=== PATIENT | female | born 1965 | race Caucasian/White ===

== ENCOUNTER → 2018-06-12 | Day surgery (SDC) | payer BC ==
--- NOTE | 2018-06-15 08:51 | PATH ---
Cytology Non-Gynecological Report Patient Name: MATT HAYWOOD [facility]. Rec. #: [id number] /Age/Gender: 1965 (Age: 53) / F Account: [id number] Location: RADIOLOGY INTER Taken: 06/12/2018 Received: 06/13/2018 Reported: 06/15/2018 Physicians: Jason Bonilla M.D. Specimen(s) Received ISTHMUS 1.68 x 0.79 x 1.27cm Clinical History Isthmus nodule Final Diagnosis THYROID, ISTHMUS, FINE NEEDLE ASPIRATION: SATISFACTORY FOR EVALUATION BETHESDA CLASS II: BENIGN SMALL FOLLICULAR CELLS, MACROPHAGES, AND COLLOID PRESENT, CONSISTENT WITH A BENIGN FOLLICULAR NODULE. Electronically Signed John English M.D. Gross Description Received are eight direct smears, four of which are air-dried and Diff-Quik stained, and four of which are alcohol fixed and Pap stained. Also received is 30 ml of bloody formalin from which one cellblock is prepared.
== END | disposition home or self-care (01) ==
LOC: JRADIR 09:10
PROVIDERS: ATTEND Internal Medicine Endocrinology, Diabetes & Metabolism
PROC: 0G9K3ZX Drainage of Thyroid Gland, Percutaneous Approach, Diagnostic (ICD-10-PCS; principal; 2018-06-12)
DX: E04.1 Nontoxic single thyroid nodule (principal)
CPT/HCPCS: 76942; 88173; 88305-TC

== ENCOUNTER 2019-02-02 09:10 | Day surgery (SDC) | payer BC ==
[2019-02-02 09:28] VITALS: BMI 33.4
[2019-02-02] MEDS ORDERED: PROPOFOL 20 ML ONE (11:34)
[2019-02-02] MEDS ORDERED: MIDAZOLAM HCL 2 MG/2 ML SINGLE DOSE VIAL ONE (11:34)
--- NOTE | 2019-02-02 11:54 | HP ---
History & Physical Update - History History: No Change (postmenopausal bleeding) - Physical Physical: No Change - Assessment Assessment: No Change - Plan Plan: No Change (D&C, hysteroscopy, excision of uterine mass.)
[2019-02-02] MEDS ORDERED: ceFAZolin SODIUM 1 GM VIAL IVPB ONE (12:03)
[2019-02-02] MEDS ORDERED: ceFAZolin SODIUM 1 GM VIAL ONE (12:04)
[2019-02-02] MEDS ORDERED: KETOROLAC TROMETHAMINE 30 MG/1 ML VIAL ONE (12:04)
[2019-02-02] MEDS ORDERED: DEXAMETHASONE SOD PHOSPHATE 4 MG/1 ML VIAL ONE (12:04)
[2019-02-02] MEDS ORDERED: LIDOCAINE HCL/PF 2% SDV 5ML VIAL ONE (12:04)
[2019-02-02] MEDS ORDERED: SODIUM CHLORIDE 0.9% P/F 10 ML VIAL IJ ONE (12:10)
--- NOTE | 2019-02-02 13:04 | OP ---
Operative Note - Note: Operative Date: 02/02/19 Pre-Operative Diagnosis: Postmenopausal bleeding, endometrial polyp Operation: Hysteroscopy, polypectomy, D&C Findings: Endometrial polyp, normal uterine cavity Post-Operative Diagnosis: Same as Pre-op Surgeon: Benoit Saldaña Anesthesiologist/FINISHING TUNNEL OPERATOR: Spring Maddox Anesthesia: General Specimens Removed: Endometrial polyp, endometrial curettings. Estimated Blood Loss (mls): 5 Blood Volume Replaced (mls): 0 Fluid Volume Replaced (mls): 800 Operative Report Dictated: Yes
[2019-02-02] MEDS ORDERED: oxyCODONE HCL 5 MG TABLET PO PRN (13:40)
[2019-02-02] MEDS ORDERED: ONDANSETRON 4 MG/2 ML VIAL IVPUSH PRN (13:40)
[2019-02-02] MEDS ORDERED: LACTATED RINGERS SOLUTION 1,000 ML IV SCH (13:45)
[2019-02-02 14:18] VITALS: TEMP 97.3
[2019-02-02 15:02] VITALS: BP 150/85; PULSE 72
--- NOTE | 2019-02-05 16:37 | PATH ---
Surgical Pathology Report Patient Name: MATT HAYWOOD [facility]. Rec. #: [id number] /Age/Gender: 1965 (Age: 54) / F Account: [id number] Location: [facility] SURGICAL Taken: 02/02/2019 Received: 02/02/2019 Reported: 02/05/2019 Physicians: Benoit Saldaña M.D. Specimen(s) Received A: ENDOMETRIAL POLYP B: ENDOMETRIAL CURETTINGS Clinical History Postmenopausal bleeding Final Diagnosis A. ENDOMETRIAL POLYP, BIOPSY: ENDOMETRIAL POLYP. B. ENDOMETRIAL CURETTINGS, DILATION AND CURETTAGE: STRIPS OF ENDOMETRIAL GLANDS CONSISTENT WITH ATROPHIC ENDOMETRIUM, SUPERFICIAL MYOMETRIUM, AND SCANT BENIGN CERVICAL TISSUE. Electronically Signed Rosangela Barba M.D. Gross Description A. Received in formalin labeled "endometrial polyp," are 3 pink-barraza, polypoid portions of soft tissue ranging from 0.6 x 0.2 x 0.1 cm to 2.2 x 1.7 x 0.3 cm. The specimens are submitted in toto in one cassette. B. Received in formalin labeled "endometrial curettings," is a 1.0 x 0.8 x 0.2 cm aggregate of barraza-red soft tissue fragments. The formalin is filtered and the specimen is entirely submitted in one cassette. 02/02/201902/02/2019
--- NOTE | 2019-02-09 18:59 | OP ---
DATE OF OPERATION: 02/02/2019 PREOPERATIVE DIAGNOSIS: Postmenopausal bleeding, endometrial polyp. POSTOPERATIVE DIAGNOSIS: Postmenopausal bleeding, endometrial polyp. PROCEDURE: Hysteroscopy, polypectomy, dilation and curettage. SURGEON: Benoit Saldaña MD ANESTHESIOLOGIST: Spring Maddox MD ANESTHESIA: General. COMPLICATIONS: None. ESTIMATED BLOOD LOSS: 5 mL. INTRAVENOUS FLUIDS: 800 mL. PATHOLOGY: Enlargement polyp, endometrial curettings. FINDINGS: Examination under anesthesia revealed a small, anteverted uterus. Hysteroscopy revealed a large endometrial polyp. Otherwise, the uterine cavity appeared to be within normal limits. DESCRIPTION OF PROCEDURE: The patient was met preoperatively. Risks, benefits, alternatives of surgery were discussed in details. All questions were answered. The patient verbalized her understanding and requested to proceed with the surgery. She was brought to the OR with the IV running. The patient was placed on the surgical table in the supine position. General anesthesia was achieved without difficulty. The patient was placed in a dorsal lithotomy position using adjustable Juanpablo stirrups. She was examined under anesthesia with the findings as described above. The patient was prepped and draped in the usual sterile fashion. A weighted speculum was introduced inside the vagina with good visualization of the cervix. The cervix was grasped with a single-tooth tenaculum. The cervical os was dilated to accommodate a size 17 Vazquez dilator. A diagnostic hysteroscope was then introduced inside the patient's uterus. Survey of the uterine cavity revealed a large endometrial polyp. The rest of the uterine cavity was within normal limits. The hysteroscope was then removed, and the cervix was further dilated to accommodate a size 27 Vazquez dilator. A polyp forceps was used to completely remove the endometrial polyp. This was performed successfully and without complications. The polyp was removed. Endometrial curetting was performed with a sharp curette. All of the tissue was submitted to Pathology for examination. A hysteroscopy was performed once again. No further polyps, masses, or lesions were noted. The uterine cavity was observed to be within normal limits. Good hemostasis was observed. All of the instruments were removed from the patient. Once again, good hemostasis was assured. Sponge, lap, instrument counts were correct. The patient was returned to supine position and transferred to the recovery room in stable condition and awake. Lester [id number]
== END 2019-02-02 15:06 | disposition home or self-care (01) ==
LOC: JASU-SURG 09:10
PROVIDERS: ATTEND Obstetrics & Gynecology
PROC: 0UJD8ZZ Inspection of Uterus and Cervix, Via Natural or Artificial Opening Endoscopic (ICD-10-PCS; 2019-02-02)
PROC: 0UB97ZX Excision of Uterus, Via Natural or Artificial Opening, Diagnostic (ICD-10-PCS; principal; 2019-02-02 11:00)
PROC: 0UDB7ZX Extraction of Endometrium, Via Natural or Artificial Opening, Diagnostic (ICD-10-PCS; 2019-02-02 11:00)
DX: N95.0 Postmenopausal bleeding (principal); N84.0 Polyp of corpus uteri
CPT/HCPCS: 88305-TC; 94760

== ENCOUNTER 2022-05-28 04:45 | Day surgery (SDC) | payer BC ==
[2022-05-26 15:45] VITALS: BMI 33.9
[2022-05-28 13:12] VITALS: TEMP 97
[2022-05-28 13:36] VITALS: RESP 18
[2022-05-28 13:47] VITALS: BP 134/88; PULSE 67
== END 2022-05-28 13:56 | disposition home or self-care (01) ==
LOC: JASU-ENDO 04:45
PROVIDERS: ATTEND Internal Medicine Gastroenterology
PROC: 0DB98ZX Excision of Duodenum, Via Natural or Artificial Opening Endoscopic, Diagnostic (ICD-10-PCS; 2022-05-28)
PROC: 0DB78ZX Excision of Stomach, Pylorus, Via Natural or Artificial Opening Endoscopic, Diagnostic (ICD-10-PCS; 2022-05-28)
PROC: 0DB48ZX Excision of Esophagogastric Junction, Via Natural or Artificial Opening Endoscopic, Diagnostic (ICD-10-PCS; 2022-05-28)
PROC: 0D878ZZ Division of Stomach, Pylorus, Via Natural or Artificial Opening Endoscopic (ICD-10-PCS; principal; 2022-05-28 13:00)
DX: K29.70 Gastritis, unspecified, without bleeding (principal); K21.00 Gastro-esophageal reflux disease with esophagitis, without bleeding; K44.9 Diaphragmatic hernia without obstruction or gangrene; K29.80 Duodenitis without bleeding; K22.82 Esophagogastric junction polyp; K25.9 Gastric ulcer, unspecified as acute or chronic, without hemorrhage or perforation
CPT/HCPCS: 88305-TC; 88342-TC